=== PATIENT | male | born 1970 | race Hispanic/Latino ===

== ENCOUNTER 2024-04-14 22:25 | Inpatient (IN) | payer OTHER ==
[~2024-04-14] VITALS: Ht 167.6 cm; Wt 77.1 kg
[2024-04-14 22:39] VITALS: TEMP 98.1
[2024-04-14] MEDS ORDERED: SODIUM CHLORIDE FLUSH 10 ML SYR IV PRN (23:00)
[2024-04-14 23:11] LABS: BASOPHILS # (AUTO) 0.1 (0.0-0.1); BASOPHILS % 0.8 % (0.0-1.0); EOSINOPHILS # (AUTO) 0.4 (0.0-0.4); EOSINOPHILS % 6.4 % (0.0-6.0); HEMOGLOBIN 12.1 g/dL (14.0-18.0); LYMPHOCYTES # (AUTO) 1.3 (1.0-3.2); LYMPHOCYTES % 20.4 % (18.0-39.1); MEAN CORPUSCULAR HEMOGLOBIN 29.8 pg (28-32); MEAN CORPUSCULAR HGB CONC 31.8 g/dL (31-35); MEAN CORPUSCULAR VOLUME 93.6 fL (81-99); MONOCYTES # (AUTO) 0.5 (0.2-0.8); MONOCYTES % 7.2 % (4.4-11.3); NEUTROPHILS # (AUTO) 4.2 (2.1-6.9); PLATELET COUNT 195 x10e3/uL (140-360); RED BLOOD COUNT 4.06 x10e6/uL (4.3-5.7); RED CELL DISTRIBUTION WIDTH 14.2 % (11.7-14.4); WHITE BLOOD COUNT 6.38 x10e3/uL (4.8-10.8)
[2024-04-14] MEDS: LABETALOL HCL 5 MG/ML 20ML VIAL IV STA (23:13)
[2024-04-14 23:22] LABS: ALANINE AMINOTRANSFERASE 38 IU/L (0-55); ALBUMIN 3.2 g/dL (3.5-5.0); ALBUMIN/GLOBULIN RATIO 0.7 (0.8-2.0); ALKALINE PHOSPHATASE 125 IU/L (40-150); ANION GAP 14.2 mmol/L (8-16); BILIRUBIN,TOTAL 0.6 mg/dL (0.2-1.2); BLOOD UREA NITROGEN 29 mg/dL (7-26); BUN/CREATININE RATIO 17 (6-25); CALCIUM 8.6 mg/dL (8.4-10.2); CARBON DIOXIDE 21 mmol/L (22-29); CHLORIDE 107 mmol/L (98-107); CREATININE, SERUM 1.71 mg/dL (0.72-1.25); EST GLOMERULAR FILTRATION RATE 47 ML/MIN (>=60); GLUCOSE 107 mg/dL (74-118); POTASSIUM 4.2 mmol/L (3.5-5.1); SODIUM 138 mmol/L (136-145); TOTAL PROTEIN 7.5 g/dL (6.5-8.1)
[2024-04-14 23:40] LABS: TROPONIN I < 0.05 ng/mL (0.0-0.40)
[2024-04-14] MEDS ORDERED: IOPAMIDOL 370 MG/ML 100 ML INFUS..BTL INJ ONE (23:58)
[2024-04-15] VITALS (9 sets, daily range): BP systolic 134–190; BP diastolic 85–107; PULSE 72–85; RESP 17–19; TEMP 97.5–98.6; O2SAT 96–100
[2024-04-15] MEDS: ACETAMINOPHEN 325 MG TAB PO ONE (00:22)
[2024-04-15] MEDS ORDERED: ONDANSETRON HCL INJ 2MG/ML 2ML 2 MG/ML VIAL IV PRN ×2 (01:00→10:00)
[2024-04-15] MEDS ORDERED: SODIUM CHLORIDE FLUSH 10 ML SYR INJ PRN (01:00)
[2024-04-15] MEDS: FUROSEMIDE INJ 10 MG/ML 4 ML VIAL IV SCH (01:41)
[2024-04-15] MEDS: SODIUM CHLORIDE 0.9% 1000ML 1,000 ML IV ONE (01:41)
[2024-04-15 07:50] LABS: TROPONIN I 0.048 ng/mL (0-0.300)
[2024-04-15] MEDS ORDERED: NO HOME MEDS (09:24)
[2024-04-15] MEDS: ASPIRIN 325 MG TAB PO ONE (11:17)
[2024-04-15] MEDS: CARVEDILOL 12.5 MG TAB PO SCH (11:18)
[2024-04-15 11:30] LABS: ABG HCO3 27 mmol/L (22-26); ABG PCO2 47 mmHg (35-45); ABG PH 7.36 (7.35-7.45); ABG PO2 88 mmHg (80-105); ABG TCO2 28
[2024-04-15] MEDS ORDERED: HYDRALAZINE HCL 20 MG/ML VIAL IV PRN ×2 (12:30→14:00)
[2024-04-15] MEDS ORDERED: BENZONATATE 100 MG CAP PO PRN (14:00)
[2024-04-15] MEDS ORDERED: MELATONIN 5 MG TABLET PO PRN (14:00)
[2024-04-15] MEDS ORDERED: POTASSIUM CHLORIDE 20 MEQ TAB CR PO PRN (14:00)
[2024-04-15] MEDS ORDERED: DOCUSATE SODIUM 100 MG CAP PO PRN (14:00)
[2024-04-15] MEDS ORDERED: DIPHENHYDRAMINE HCL 25 MG CAP PO PRN (14:00)
[2024-04-15] MEDS ORDERED: LIDOCAINE 4% PATCH TP PRN (14:00)
[2024-04-15] MEDS ORDERED: SIMETHICONE 80 MG CHEW PO PRN (14:00)
[2024-04-15] MEDS ORDERED: ALBUTEROL/IPRATROPIUM 3 ML NEB NEB PRN (14:00)
[2024-04-15] MEDS ORDERED: DEXTROSE 50% SYRINGE 50 ML IV PRN (14:00)
[2024-04-15] MEDS ORDERED: ACETAMINOPHEN 325 MG TAB PO PRN (14:00)
[2024-04-15 15:11] LABS: TROPONIN I 0.05 ng/mL (0-0.300)
[2024-04-15] MEDS: HYDRALAZINE HCL 25 MG TAB PO SCH (15:13)
[2024-04-15] MEDS: ENOXAPARIN SOD INJ 40 MG/0.4 ML SYR SC SCH (17:50)
[2024-04-16 00:15] VITALS: BP 134/87; PULSE 79; RESP 18; TEMP 98.4; O2SAT 100
[2024-04-16 02:47] LABS: AMPHETAMINES SCREEN,URINE NEGATIVE (NEGATIVE); OPIATES SCREEN,URINE NEGATIVE (NEGATIVE); PHENCYCLIDINE SCREEN,URINE NEGATIVE (NEGATIVE)
[2024-04-16 02:48] LABS: BENZODIAZEPINES SCREEN,URINE NEGATIVE (NEGATIVE); CANNABINOIDS SCREEN,URINE NEGATIVE (NEGATIVE); COCAINE SCREEN,URINE POSITIVE (NEGATIVE); METHADONE SCREEN, URINE NEGATIVE (NEGATIVE)
[2024-04-16 04:10] VITALS: BP 145/71; PULSE 79; RESP 17; TEMP 97.5; O2SAT 97
[2024-04-16 05:15] LABS: BASOPHILS # (AUTO) 0.1 (0.0-0.1); BASOPHILS % 0.9 % (0.0-1.0); EOSINOPHILS # (AUTO) 0.3 (0.0-0.4); EOSINOPHILS % 6.2 % (0.0-6.0); HEMATOCRIT 37.1 % (38.2-49.6); HEMOGLOBIN 11.9 g/dL (14.0-18.0); LYMPHOCYTES # (AUTO) 1.2 (1.0-3.2); LYMPHOCYTES % 22.5 % (18.0-39.1); MEAN CORPUSCULAR HGB CONC 32.1 g/dL (31-35); MEAN CORPUSCULAR VOLUME 93.5 fL (81-99); MONOCYTES # (AUTO) 0.5 (0.2-0.8); MONOCYTES % 9.9 % (4.4-11.3); NEUTROPHILS # (AUTO) 3.2 (2.1-6.9); NEUTROPHILS % 60.1 % (38.7-80.0); PLATELET COUNT 197 x10e3/uL (140-360); RED BLOOD COUNT 3.97 x10e6/uL (4.3-5.7); RED CELL DISTRIBUTION WIDTH 14.2 % (11.7-14.4); WHITE BLOOD COUNT 5.34 x10e3/uL (4.8-10.8)
[2024-04-16 05:29] LABS: INR 1.08; PROTHROMBIN TIME 14.7 seconds (11.9-14.5)
[2024-04-16 05:30] LABS: PARTIAL THROMBOPLASTIN TIME 46.6 seconds (23.8-35.5)
[2024-04-16 05:37] LABS: ALBUMIN/GLOBULIN RATIO 0.7 (0.8-2.0); ANION GAP 12.7 mmol/L (8-16); BILIRUBIN,TOTAL 0.4 mg/dL (0.2-1.2); CALCIUM 8.3 mg/dL (8.4-10.2); CREATININE, SERUM 2.1 mg/dL (0.72-1.25); POTASSIUM 3.7 mmol/L (3.5-5.1); TOTAL PROTEIN 7.1 g/dL (6.5-8.1)
[2024-04-16 05:38] LABS: CHOL/HDL RATIO 4.1 (3.9-4.7)
[2024-04-16 05:52] LABS: THYROID STIMULATING HORMONE 0.82 uIU/mL (0.350-4.940)
[2024-04-16 06:57] VITALS: PULSE 85; RESP 20; O2SAT 98
[2024-04-16] MEDS: PANTOPRAZOLE SOD 40 MG TABEC PO SCH (07:30)
[2024-04-16] MEDS: ASPIRIN 81 MG ENTERIC COATED PO SCH (07:44)
[2024-04-16] MEDS: FUROSEMIDE 40 MG TAB PO SCH (08:31)
[2024-04-16] MEDS ORDERED: REGADENOSON 0.4 MG/5 ML SYR IV ONE (11:36)
[2024-04-16 12:00] VITALS: BP 178/96; PULSE 80; RESP 20; TEMP 97.7; O2SAT 99
[2024-04-16 13:00] VITALS: BP 140/75; PULSE 85; RESP 20; TEMP 97.5; O2SAT 98
[2024-04-20 15:36] LABS: ABG HCO3 28 mmol/L (22-26); ABG PCO2 49 mmHg (35-45); ABG PH 7.36 (7.35-7.45); ABG PO2 37 mmHg (80-105); ABG TCO2 29
[2024-04-21 09:18] LABS: ABG HCO3 27 mmol/L (22-26); ABG PCO2 47 mmHg (35-45); ABG PH 7.36 (7.35-7.45); ABG PO2 88 mmHg (80-105); ABG TCO2 28
== END 2024-04-16 15:25 | disposition left against medical advice (07) | DRG 291 ==
LOC: ER 22:45 → ERHOLD 04-15 01:00 → MED/SURG 04-15 02:20
PROVIDERS: ADMIT Internal Medicine; ATTEND Internal Medicine
PROC: 4A133R1 Monitoring of Arterial Saturation, Peripheral, Percutaneous Approach (ICD-10-PCS; principal; 2024-04-15)
DX: I11.0 Hypertensive heart disease with heart failure (principal); I50.41 Acute combined systolic (congestive) and diastolic (congestive) heart failure; N17.9 Acute kidney failure, unspecified; E66.2 Morbid (severe) obesity with alveolar hypoventilation; K70.30 Alcoholic cirrhosis of liver without ascites; I25.10 Atherosclerotic heart disease of native coronary artery without angina pectoris; R06.03 Acute respiratory distress; N18.30 Chronic kidney disease, stage 3 unspecified; F10.10 Alcohol abuse, uncomplicated; F14.10 Cocaine abuse, uncomplicated; Z68.27 Body mass index [BMI] 27.0-27.9, adult; Z82.49 Family history of ischemic heart disease and other diseases of the circulatory system
CPT/HCPCS: 36415; 36600; 71045; 71046; 71260; 78452; 80053; 80061; 80307; 82550; 82805; 83036; 83735; 83880; 84443; 84484; 85025; 85379; 85610; 85730; 93005; 93017; 93306; 93925; 93971; 94760; 94799; 99252; 99284; A9502; J1650; J1940; J7030; Q9967